=== PATIENT | male | born 1950 | race Caucasian/White ===

== ENCOUNTER → 2020-03-07 | Outpatient (CLI) | payer MEDICARE, OTHER ==
[~2020-03-07] MED LIST: AMOX-291 PO; OMNIPAQUE 350 MG/ML, 100ML BOTTLE ONE
== END | disposition home or self-care (01) ==
LOC: CFH 11:14
PROVIDERS: ATTEND Pathology Hematology
DX: N40.0 Benign prostatic hyperplasia without lower urinary tract symptoms (principal); D72.829 Elevated white blood cell count, unspecified; J98.11 Atelectasis
CPT/HCPCS: 71260; 74177; Q9967